=== PATIENT | female | born 1955 | race Caucasian/White ===

== ENCOUNTER → 2018-02-10 | Outpatient (CLI) | payer BC ==
--- NOTE | 2018-02-10 17:00 | US ---
EXAM DESCRIPTION: Venous,Lower Extremity LT CLINICAL HISTORY: LEFT LEG PAIN COMPARISON: None Available. TECHNIQUE: Left lower extremity venous duplex FINDINGS: Doppler evaluation of the left lower extremity deep veins was performed. Normal color flow is seen in the common femoral, superficial femoral, profunda femoral and greater saphenous veins. Normal flow is seen in the popliteal vein and veins below the knee in the calf. Normal venous compressibility and flow augmentation. IMPRESSION: Negative for evidence of deep venous thrombosis on left lower extremity venous Doppler sonogram. Electronically signed by: Judah Martinez MD 02/10/2018 4:59 PM CDT
--- NOTE | 2018-02-10 17:00 | US ---
EXAM DESCRIPTION: Venous,Lower Extremity RT CLINICAL HISTORY: RT LEG PAIN COMPARISON: None Available. TECHNIQUE: Right lower extremity venous duplex FINDINGS: Doppler evaluation of the right lower extremity deep veins was performed. Normal color flow is seen in the common femoral, superficial femoral, profunda femoral and greater saphenous veins. Normal flow is seen in the popliteal vein and veins below the knee in the calf. Normal venous compressibility and flow augmentation. IMPRESSION: Negative for evidence of deep venous thrombosis on the right lower extremity venous Doppler sonogram. Electronically signed by: Judah Martinez MD 02/10/2018 4:59 PM CDT
--- NOTE | 2018-02-10 17:06 | US ---
Exam: Bilateral lower extremity arterial Doppler sonogram CLINICAL HISTORY: Left leg pain TECHNIQUE: Doppler sonographic evaluation of the bilateral lower extremities was performed. FINDINGS: Right Submitted sonographic images reveal patent vessels with no visualized stenosis. Normal flow velocities with multiphasic flow except for the dorsalis pedis artery which is monophasic. Arteriosclerotic plaque is seen in the right popliteal artery and arteries below the knee. The following peak systolic flow flow velocity measurements were obtained: Common femoral artery velocity equals 98 centimeters per second , triphasic. Superficial femoral artery velocity equals 86-1 05 centimeters per second , triphasic. Popliteal artery velocity equals 58 centimeters per second , biphasic. Peroneal artery velocity equals 81 centimeters per second , triphasic. Posterior tibial artery velocity equals 82 centimeters per second , triphasic. Dorsalis pedis artery velocity equals 57 centimeters per second , monophasic. Left Submitted sonographic images reveal atherosclerotic plaque in the superficial femoral and popliteal arteries with plaque in the arteries below the knee. Monophasic flow is seen in the posterior tibial and dorsalis pedis arteries. The following peak systolic flow flow velocity measurements were obtained: Common femoral artery velocity equals 121 centimeters per second , biphasic. Superficial femoral artery velocity equals 58 - 108 centimeters per second , triphasic. Popliteal artery velocity equals 54 centimeters per second , triphasic. Peroneal artery velocity equals 41 centimeters per second , biphasic. Posterior tibial artery velocity equals 114 centimeters per second , monophasic. Dorsalis pedis artery velocity equals 50 centimeters per second , monophasic. IMPRESSION: Monophasic flow in the bilateral dorsalis pedis arteries and left posterior tibial artery. Multiphasic flow in the other visualized arteries of the lower extremities. Electronically signed by: Judah Martinez MD 02/10/2018 5:04 PM CDT
== END ==
LOC: US 09:00
PROVIDERS: ATTEND Family Medicine
DX: M79.605 Pain in left leg (principal); M79.604 Pain in right leg; I70.203 Unspecified atherosclerosis of native arteries of extremities, bilateral legs

== ENCOUNTER 2018-09-11 19:03 | Emergency (ER) | payer BC ==
--- NOTE | 2018-09-11 19:45 | ED.PDOC ---
History of Present Illness - General Chief Complaint: Blood Pressure Problem Stated Complaint: HTN, chest pressure Time Seen by Provider: 09/11/18 19:39 Source: patient Exam Limitations: no limitations - History of Present Illness Initial Comments: SENT FROM PCP FOR ELEVATED BP. HAS HAD 3-4 DAY HX OF ELEVATED BP'S, 160'S-180'S WHICH IS HIGH FOR HER. C/O TIGHTNESS POST OCCIPUT, POST SHOULDERS, AND UPPER BACK. SAME SENSATION SHE HAD JUST BEFORE SHE WAS DIAGNOSED WITH HTN. NO RECENT MEDICATION CHANGES BUT DID GET NEW GENERIC RX DELIVERED ONE WEEK AGO. Severity: moderate Activities at Onset: none Prior Chest Pain/Cardiac Workup: no prior chest pain Improving Factors: nothing Worsening Factors: nothing Allergies/Adverse Reactions: Allergies Carisoprodol [From Soma] Adverse Reaction (Verified 09/11/18 19:37) Levofloxacin [From Levaquin] Adverse Reaction (Verified 09/11/18 19:37) Home Medications: Ambulatory Orders Aspirin [(None)] 325 mg PO QD 09/11/18 Cholecalciferol [Vitamin D3] 5,000 unit PO DAILY 09/11/18 Conjugated Estrogens [Premarin] 0.625 mg PO QD 09/11/18 Cyanocobalamin [Vitamin B-12] 1,000 mcg PO DAILY 09/11/18 Denosumab [Prolia] 60 mg SC MONTHLY 09/11/18 Diltiazem HCl Coated Beads [Cardizem LA] 180 mg PO DAILY 09/11/18 Gabapentin 600 mg PO BEDTIME 09/11/18 Interferon Beta-1A [Rebif] 44 mcg SC WKLY 09/11/18 Levothyroxine Sodium [Synthroid] 100 mcg PO DAILY 09/11/18 Losartan Potassium 50 mg PO DAILY 09/11/18 Metoprolol Succinate [Toprol Xl] 25 mg PO DAILY 09/11/18 Pantoprazole Sodium 40 mg PO DAILY 09/11/18 Tiotropium [place] Monohydrate [Spiriva Respimat] 2.5 mcg IN DAILY 09/11/18 Zolpidem Tartrate [Ambien] 10 mg PO BEDTIME 09/11/18 Review of Systems - Review of Systems Constitutional: States: no symptoms reported EENTM: Denies: blurred vision, double vision Respiratory: States: short of breath. Denies: cough Cardiology: Denies: chest pain, palpitations, syncope Gastrointestinal/Abdominal: Denies: abdominal pain, nausea, vomiting Genitourinary: States: no symptoms reported Musculoskeletal: States: neck pain. Denies: back pain Skin: States: no symptoms reported Neurological: States: no symptoms reported Endocrine: States: no symptoms reported Hematologic/Lymphatic: States: no symptoms reported Past Medical History (General) - Patient Medical History Hx Asthma: Yes Hx of COPD: Yes Hx Hypertension: Yes Hx Gastroesophageal Reflux: Yes - Vaccination History Immunizations Up to Date: Yes Family Medical History - Family History Father Family History: Unknown Physical Exam - Physical Exam General Appearance: Alert, No apparent distress Eyes, Ears, Nose, Throat Exam: PERRL/EOMI, normal ENT inspection Neck: non-tender, full range of motion, supple Respiratory: lungs clear, normal breath sounds Cardiovascular/Chest: regular rate, rhythm, no murmur Gastrointestinal/Abdominal: non tender, soft, no organomegaly Extremity: normal range of motion, non-tender Neurologic: no motor/sensory deficits, alert, normal mood/affect Skin Exam: normal color, warm/dry Lymphatic: no adenopathy Progress - Progress Progress: 09/11/18 21:54 BP'S 150'S/60'S. PULSE 60. FEELS MUCH BETTER. - EKG/XRAY/CT EKG: Julius - RATE 56, NL AXIS, NL INTERVALS, , Sinus, no ST T wave changes - NAIP, NO OLD FOR COMPARISON Departure - Departure Clinical Impression: Elevated blood pressure reading Hypertension Qualifiers: Hypertension type: essential hypertension Qualified Code(s): I10 - Essential (primary) hypertension Time of Disposition: 21:59 Disposition: Discharge to Home or Self Care Condition: Good Departure Forms: ED Discharge - Pt. Copy, Patient Portal Self Enrollment Instructions: DI for High Blood Pressure, High Blood Pressure (DC) Referrals: Heri Jordan III, MD [Primary Care Provider] - 1-2 Weeks Home Medications: Ambulatory Orders Aspirin [(None)] 325 mg PO QD 09/11/18 Cholecalciferol [Vitamin D3] 5,000 unit PO DAILY 09/11/18 Conjugated Estrogens [Premarin] 0.625 mg PO QD 09/11/18 Cyanocobalamin [Vitamin B-12] 1,000 mcg PO DAILY 09/11/18 Denosumab [Prolia] 60 mg SC MONTHLY 09/11/18 Diltiazem HCl Coated Beads [Cardizem LA] 180 mg PO DAILY 09/11/18 Gabapentin 600 mg PO BEDTIME 09/11/18 Interferon Beta-1A [Rebif] 44 mcg SC WKLY 09/11/18 Levothyroxine Sodium [Synthroid] 100 mcg PO DAILY 09/11/18 Losartan Potassium 50 mg PO DAILY 09/11/18 Metoprolol Succinate [Toprol Xl] 25 mg PO DAILY 09/11/18 Pantoprazole Sodium 40 mg PO DAILY 09/11/18 Tiotropium [place] Monohydrate [Spiriva Respimat] 2.5 mcg IN DAILY 09/11/18 Zolpidem Tartrate [Ambien] 10 mg PO BEDTIME 09/11/18
--- NOTE | 2018-09-11 20:03 | RAD ---
EXAM DESCRIPTION: AP view of the chest CLINICAL HISTORY:63 years Female, CP Comparison: None FINDINGS: No focal lung consolidation. No pleural effusion. No pneumothorax. Cardiac and mediastinal silhouette is unremarkable. No acute osseous abnormality. Soft tissues are unremarkable. IMPRESSION: No acute findings. No focal lung consolidation. Electronically signed by: Brock Espinosa DO 09/11/2018 8:02 PM RESIDENT SERVICES COORDINATOR
[2018-09-11 20:38] VITALS: TEMP 98.1
[2018-09-11] MEDS ORDERED: cloNIDine HCL 0.1 MG TAB PO ONE (20:47)
[2018-09-11 21:52] VITALS: BP 154/69
[2018-09-11 22:06] VITALS: O2SAT 99
== END 2018-09-11 22:06 | disposition home or self-care (01) ==
LOC: ER 19:03
DX: I10 Essential (primary) hypertension (principal); R07.89 Other chest pain; R00.1 Bradycardia, unspecified; J44.9 Chronic obstructive pulmonary disease, unspecified; K21.9 Gastro-esophageal reflux disease without esophagitis; Z79.899 Other long term (current) drug therapy; Z79.82 Long term (current) use of aspirin; Z88.8 Allergy status to other drugs, medicaments and biological substances

== ENCOUNTER → 2020-10-07 | Outpatient (CLI) | payer MEDICARE, BC | LOC: BFHH 10:22 | PROVIDERS: ATTEND Family Medicine | DX: U07.1 COVID-19 (principal); E86.0 Dehydration; T45.1X5A Adverse effect of antineoplastic and immunosuppressive drugs, initial encounter ==

== ENCOUNTER 2020-11-10 12:19 | Emergency (ER) | payer MEDICARE, BC ==
[2020-11-10] MEDS ORDERED: KETOROLAC TROMETHAMINE INJ 30 MG/ML VIAL ONE (12:32)
[2020-11-10] MEDS: KETOROLAC TROMETHAMINE INJ 30 MG/ML VIAL IM ONE (12:48)
--- NOTE | 2020-11-10 13:02 | RAD ---
EXAM DESCRIPTION: Ribs,Right 3 Views CLINICAL HISTORY: 65 years Female, fell, right posterior rib pain COMPARISON: None. Findings: 3 view(s)/radiograph(s) Posterior right seventh rib fracture. No other fracture identified. Visualized chest is clear. No pneumothorax. No pleural effusion. Left chest wall port tip overlying the SVC. IMPRESSION: Posterior right seventh rib fracture. Electronically signed by: Laith Sales MD 11/10/2020 1:00 PM [facility]
--- NOTE | 2020-11-10 13:35 | ED.PDOC ---
History of Present Illness - General Chief Complaint: Trauma Stated Complaint: fall this morning Time Seen by Provider: 11/10/20 12:23 Source: patient Exam Limitations: no limitations - History of Present Illness Initial Comments: The patient is a 65-year-old female presenting to the emergency room secondary to pain along the right side of her back since she slipped and fell in the middle of the night. It does hurt to take a deep breath. No syncope. The patient has weakness due to minute metastatic pancreatic cancer. She is alert and oriented. She is currently not in acute distress. She does look frail and pale. The patient has some very mild bruising along the posterior lateral right rib cage. No crepitus. Lung diallo are clear. Good air movement. No pain over the spinous processes or over the spine itself. Timing/Duration: 4-6 hours Severity: moderate Improving Factors: immobilization Worsening Factors: movement Associated Symptoms: denies symptoms Allergies/Adverse Reactions: Allergies Carisoprodol [From Soma] Adverse Reaction (Verified 11/10/20 12:29) Levofloxacin [From Levaquin] Adverse Reaction (Verified 11/10/20 12:29) Home Medications: Ambulatory Orders Aspirin [(None)] 325 mg PO QD 09/11/18 Cholecalciferol [Vitamin D3] 5,000 unit PO DAILY 09/11/18 Conjugated Estrogens [Premarin] 0.625 mg PO QD 09/11/18 Cyanocobalamin [Vitamin B-12] 1,000 mcg PO DAILY 09/11/18 Denosumab [Prolia] 60 mg SC MONTHLY 09/11/18 Diltiazem HCl Coated Beads [Cardizem LA] 180 mg PO DAILY 09/11/18 Gabapentin 600 mg PO BEDTIME 09/11/18 Interferon Beta-1A [Rebif] 44 mcg SC WKLY 09/11/18 Levothyroxine Sodium [Synthroid] 100 mcg PO DAILY 09/11/18 Losartan Potassium 50 mg PO DAILY 09/11/18 Metoprolol Succinate [Toprol Xl] 25 mg PO DAILY 09/11/18 Pantoprazole Sodium 40 mg PO DAILY 09/11/18 Tiotropium [place] Monohydrate [Spiriva Respimat] 2.5 mcg IN DAILY 09/11/18 Zolpidem Tartrate [Ambien] 10 mg PO BEDTIME 09/11/18 Ketorolac Tromethamine 10 mg PO Q6HR PRN #40 tab 11/10/20 Review of Systems - Review of Systems Constitutional: States: no symptoms reported EENTM: States: no symptoms reported Respiratory: States: no symptoms reported Cardiology: States: no symptoms reported Gastrointestinal/Abdominal: States: see HPI - Chronic GI symptoms Genitourinary: States: no symptoms reported Musculoskeletal: States: back pain Skin: States: no symptoms reported Neurological: States: no symptoms reported Endocrine: States: no symptoms reported Hematologic/Lymphatic: States: no symptoms reported All other Systems: No Change from Baseline Past Medical History (General) - Patient Medical History Hx Seizures: No Hx Stroke: No Hx Dementia: No Hx Asthma: Yes Hx of COPD: Yes Hx Cardiac Disorders: No Hx Congestive Heart Failure: No Hx Pacemaker: No Hx Hypertension: Yes Hx Thyroid Disease: No Hx Diabetes: No Hx Gastroesophageal Reflux: Yes Hx Renal Disease: No Hx Cancer: Yes - Pancreatic Hx Hepatitis C: No Surgical History: appendectomy, cholecystectomy, tonsillectomy, Hysterectomy - Vaccination History Hx Tetanus, Diphtheria Vaccination: No Hx Influenza Vaccination: Yes Hx Pneumococcal Vaccination: Yes - Social History Hx Tobacco Use: Yes Hx Alcohol Use: Yes - occasional - Female History Patient is a Female of Child Bearing Age (10 -59 yrs old): No Family Medical History - Family History Father Family History: Unknown Physical Exam - Physical Exam General Appearance: Alert, Frail Eye Exam: bilateral normal Ears, Nose, Throat: hearing grossly normal, normal pharynx Neck: full range of motion Respiratory: lungs clear, normal breath sounds, no respiratory distress, no accessory muscle use, other - See history of present illness Cardiovascular/Chest: normal peripheral pulses, no edema, other - Regular rate Peripheral Pulses: radial,right: 2+, radial,left: 2+ Rectal Exam: deferred Back Exam: no vertebral tenderness, other - See history of present illness Extremity: normal range of motion, non-tender, normal inspection, no pedal edema, normal capillary refill 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 The patient appears to sustained a posterior right seventh rib fracture. No underlying pneumothorax. The patient will be written for ketorolac for as needed use for the next couple of weeks. She does need to take big deep breaths and make her self cough. She does need to twist and turn. She does need to maintain her activity level. She needs to keep follow-up with her routine medical care. ER warnings are given. lilo ana [id number] - Results/Orders Results/Orders: Right-sided rib series shows a posterior seventh rib fracture. No pneumothorax. Departure - Departure Clinical Impression: Closed rib fracture Qualifiers: Encounter type: initial encounter Rib fracture type: single rib Laterality: right Qualified Code(s): S22.31XA - Fracture of one rib, right side, initial encounter for closed fracture Disposition: Discharge to Home or Self Care Condition: Fair Departure Forms: ED Discharge - Pt. Copy, Patient Portal Self Enrollment Instructions: DI for Trauma, Rib Fracture (DC) Diet: regular diet Activity: increase activity as tolerated Referrals: Heri Jordan III, MD [Primary Care Provider] - 1-2 Weeks Prescriptions: Ketorolac Tromethamine 10 mg PO Q6HR PRN #40 tab PRN Reason: Moderate Pain Home Medications: Ambulatory Orders Aspirin [(None)] 325 mg PO QD 09/11/18 Cholecalciferol [Vitamin D3] 5,000 unit PO DAILY 09/11/18 Conjugated Estrogens [Premarin] 0.625 mg PO QD 09/11/18 Cyanocobalamin [Vitamin B-12] 1,000 mcg PO DAILY 09/11/18 Denosumab [Prolia] 60 mg SC MONTHLY 09/11/18 Diltiazem HCl Coated Beads [Cardizem LA] 180 mg PO DAILY 09/11/18 Gabapentin 600 mg PO BEDTIME 09/11/18 Interferon Beta-1A [Rebif] 44 mcg SC WKLY 09/11/18 Levothyroxine Sodium [Synthroid] 100 mcg PO DAILY 09/11/18 Losartan Potassium 50 mg PO DAILY 09/11/18 Metoprolol Succinate [Toprol Xl] 25 mg PO DAILY 09/11/18 Pantoprazole Sodium 40 mg PO DAILY 09/11/18 Tiotropium [place] Monohydrate [Spiriva Respimat] 2.5 mcg IN DAILY 09/11/18 Zolpidem Tartrate [Ambien] 10 mg PO BEDTIME 09/11/18 Ketorolac Tromethamine 10 mg PO Q6HR PRN #40 tab 11/10/20 Additional Instructions: Patient is a 65-year-old female presented emergency room secondary to fall in the middle of the night. The patient appears to sustained a posterior right seventh rib fracture. No underlying pneumothorax. The patient will be written for ketorolac for as needed use for the next couple of weeks. She does need to take big deep breaths and make her self cough. She does need to twist and turn. She does need to maintain her activity level. She needs to keep follow-up with her routine medical care. ER warnings are given.
[2020-11-10 14:08] VITALS: BP 153/89; TEMP 97.5; O2SAT 97
== END 2020-11-10 13:42 | disposition home or self-care (01) ==
LOC: ER 12:19
DX: S22.31XA Fracture of one rib, right side, initial encounter for closed fracture (principal); C25.9 Malignant neoplasm of pancreas, unspecified; C79.9 Secondary malignant neoplasm of unspecified site; I10 Essential (primary) hypertension; K21.9 Gastro-esophageal reflux disease without esophagitis; J44.9 Chronic obstructive pulmonary disease, unspecified; W01.0XXA Fall on same level from slipping, tripping and stumbling without subsequent striking against object, initial encounter; Y92.9 Unspecified place or not applicable; Z79.899 Other long term (current) drug therapy; Z79.82 Long term (current) use of aspirin; Z88.1 Allergy status to other antibiotic agents; Z88.8 Allergy status to other drugs, medicaments and biological substances; Z87.891 Personal history of nicotine dependence
CPT/HCPCS: 71101; J1885